=== PATIENT | male | born 1940 | race Caucasian/White ===

== ENCOUNTER 2017-07-03 10:14 | Inpatient (IN) | payer MEDICARE, MEDICAID, SELFPAY ==
[2017-07-03 10:15] VITALS: BP 132/78; PULSE 64; RESP 17; TEMP 36.7; O2SAT 98; BMI 25.4
[2017-07-03] MEDS: 0.9% Normal Saline 1,000 ML 100 ML IV ×2 (11:21→23:06)
[2017-07-03] MEDS: Acetaminophen 500 MG Tablet 1000 MG PO (11:21)
[2017-07-03 11:35] LABS: Absolute Lymphocyte Count 0.95 X10^3/ul (0.83-4.51); Absolute Neutrophil Count 5.7 X10^3/uL (2.0-7.7); Basophil# 0.03 X10^3/uL; Basophil% 0.4 % (0-1); Eosinophil# 0.34 X10^3/uL; Eosinophils% 4.5 % (0-5); Hematocrit 36.1 % (40-54); Hemoglobin 12.3 g/dl (13.0-16.5); Lymphocyte # 0.95 X10^3/ul (4.0); Lymphocyte % 12.5 % (19-41); Mean Corp Hgb Conc 34.1 g/gl (32-36); Mean Corpuscular Hgb 30.8 pg (27.0-32.0); Mean Corpuscular Volume 90.3 fL (80-94); Mean Platelet Vol. 13.3 fl (6.2-12.0); Monocyte# 0.57 X10^3/uL; Monocyte% 7.5 % (0-10); Neutrophil # 5.69 X10^3/uL (2.7-7.7); POSITIVE COUNT NO; POSITIVE DIFFERENTIAL NO; POSITIVE MORPHOLOGY NO; Platelet Count 130 K/mm3 (150-450); RBC Distribution Width CV 13.8 % (11.6-14.6); RBC Distribution Width SD 45.1 fl (35.1-43.9); White Blood Count 7.6 K/mm3 (4.4-11.0)
[2017-07-03 11:50] LABS: Anion Gap 10 (5-15); BUN 10 mg/dL (7-18); Calcium,Total 8.5 mg/dL (8.5-10.1); Chloride 108 mmol/L (98-107); Creatinine, Serum 0.84 mg/dL (0.70-1.30); EST Glomerular Filtration Rate 95 mL/min (>60); Est Glom Filt Rate - Afr Amer 114 mL/min (>60); Estimated Creatinine Clearance 64.06 ml/min; Glucose 92 mg/dL (74-106); Potassium 4.8 mmol/L (3.5-5.1); Sodium Level 138 mmol/L (136-145)
--- NOTE | 2017-07-03 12:25 | ED.VISSUMM ---
- ER Visit Summary Date of Service: 07/03/17 Chief Complaint: Rash and bilateral hand pain History of Present Illness: The patient is a 76 M who presents with cellulitis of bilateral arms. 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 He has had some chronic dermatitis on his hands for many years. Recently he developed increased pain and redness. He was prescribed a topical steroid as well as oral antibiotics which he completed a couple of weeks ago. Family reports that he did seem to be improving however in the past couple of days has significantly worsened again. He complains of increased pain and redness and warmth to the bilateral hands and arms. He was seen by a nurse practitioner at the [facility] who is concerned that he would need IV antibiotics and he was sent here to the emergency department. No fevers or vomiting. Physical Examination: Afebrile vitals are stable Moist mucous membranes Heart regular rate and rhythm Lungs are clear Abdomen soft He has erythema and warmth to the touch of the bilateral hands and arms to just above the elbow I do not appreciate lymphangitic streaking no petechiae or purpura he does have dryness and scaling of his hands with multiple areas of cracked skin and small open wounds. I do not appreciate any purulent drainage. Palpable pulses. Test Results: Laboratory studies are notable for hemoglobin 12.3 otherwise unremarkable. Emergency Department Course and Treatment: Patient was treated with IV Zosyn. He was discussed with the hospitalist will be admitted. Treatment Plan: [] Disposition: Admit Impression: Bilateral arm cellulitis Chronic dermatitis of hands This note was generated with [employer] dictation software. It may contain incorrect words, spelling, and punctuation that were not noted in review of the chart prior to signing ED Disposition - Plan for ED Patient: Chief Complaint: Cellulitis Referrals: Hasmukh Harrison MD [Primary Care Provider] -
--- NOTE | 2017-07-03 12:25 | PCM.HP.STD ---
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 Patient had been diagnosed with cellulitis about 3 weeks prior to his current admission was treated with Keflex with improvement however symptoms occurred a few days prior to his admission. Patient on further questioning denied any subjective fever no chills denied any recent trauma. On assessment of bilateral cellulitis involving both upper extremities was made in the ED admitted for inpatient evaluation and management. Patient was not very forthcoming with a history in view of his underlying dementia history was therefore taken from his son-in-law who was in the room. Past Medical History Past Medical History (Chronic Problems): Chronic Problems Essential hypertension (Chronic) Allergies No Known Allergies Allergy (Verified 07/03/17 10:15) Home Medications: Ambulatory Orders Medication Instructions Recorded Phenytoin Na [Dilantin] 100 mg PO BID 02/26/13 Nitroglycerin [Nitrostat] 0.4 mg SUBLINGUAL Q5M PRN 07/06/15 Aspirin [Aspirin, Baby] 81 mg PO DAILY@0800 09/18/15 Donepezil HCl 10 mg PO DAILY 09/18/15 Omeprazole [Prilosec] 20 mg PO BID 09/18/15 Atenolol [Tenormin (beta sal)] 25 mg PO DAILY 05/16/16 Clopidogrel Bisulfate [Plavix] 75 mg PO DAILY 05/16/16 Isosorbide Dinitrate 30 mg PO DAILY 05/16/16 Phenobarbital 48.6 mg PO BID 05/16/16 Surgical History: - - Right hand surgery Smoking Status: Former smoker - *Family History Maternal History Items: Unknown - Patient has dementia Review of Systems Unable to obtain accurate/complete ROS d/t: significant cognitive impairment VTE Information - Inpt Only VTE Present on Admission: No VTE Mechan Device Prophylaxis: Knee High LAMINE Hose VTE Pharm Prophylaxis ordered?: Yes Patient Problems: Active and Suspected Problems Cellulitis (Acute) Cellulitis of forearm (Acute) Objective: GENERAL: in no apparent distress. HEENT: Clear conjunctiva, NECK; supple, normal thyroid, CHEST: Clear to auscultation bilaterally, HEART: Regular S1 S2, no audible murmurs ABDOMEN: soft, non-tender, normoactive bowel sounds, RECTAL: deferred EXTREMITIES: Erythema and warmth involving both forearms with cracked hands with excoriations HEALTH AND WELLNESS COORDINATOR: Awake, no lateralizing signs. SKIN: As above - Physical Exam Vital Signs Temp Pulse Resp BP Pulse Ox 98.1 F 64 17 132/78 H 98 07/03/17 10:15 07/03/17 10:15 07/03/17 10:15 07/03/17 10:15 07/03/17 10:15 Oxygen Delivery Method Room Air Weight: 69.5 kg Body Mass Index (BMI) 25.4 Laboratory Tests Past 24 Hrs 07/03/17 07/03/17 11:25 11:25 WBC 7.6 RBC 4.00 L Hgb 12.3 L Hct 36.1 L MCV 90.3 MCH 30.8 MCHC 34.1 RDW 13.8 RDW Differential 45.1 H Plt Count 130 L MPV 13.3 H Immature Gran % (Auto) 0.100 Neut % (Auto) 75.0 H Lymph % (Auto) 12.5 L [place] % (Auto) 7.5 Eos % (Auto) 4.5 Baso % (Auto) 0.4 Absolute Neuts (auto) 5.7 Absolute Lymphs (auto) 0.95 Total Counted Not Reportable Sodium 138 Potassium 4.8 Chloride 108 H Carbon Dioxide 20.0 L Anion Gap 10 BUN 10 Creatinine 0.84 Estim Creat Clear Calc 64.06 Est GFR (MDRD) Af Amer 114 Est GFR (MDRD) Non-Af 95 BUN/Creatinine Ratio 12.0 Glucose 92 Calcium 8.5 Assessment/Plan Active and Suspected Problems Cellulitis (Acute) Cellulitis of forearm (Acute) Patient is a 76 year old gentleman with past medical history cigar for significant bilateral upper extremity skin dryness presented with erythema and warmth 1. Bilateral upper extremity cellulitis: Patient admitted to regular nursing floor. His cellulitis is nonpurulent patient was therefore placed on only cefazolin 2. Seizure disorder controlled patient is on phenytoin as well as phenobarbital did continue with both 3. GERD on PPI 4. Hypertension-blood pressure controlled, home medications continued with dose adjustment as needed 5. Dementia patient is on Aricept did continue 6. DVT prophylaxis SC Lovenox
--- NOTE | 2017-07-03 12:28 | ED.DCSUM_ITS ---
- ER Visit Summary Date of Service: 07/03/17 Chief Complaint: Rash and bilateral hand pain History of Present Illness: The patient is a 76 M who presents with cellulitis of bilateral arms. 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 He has had some chronic dermatitis on his hands for many years. Recently he developed increased pain and redness. He was prescribed a topical steroid as well as oral antibiotics which he completed a couple of weeks ago. Family reports that he did seem to be improving however in the past couple of days has significantly worsened again. He complains of increased pain and redness and warmth to the bilateral hands and arms. He was seen by a nurse practitioner at the [facility] who is concerned that he would need IV antibiotics and he was sent here to the emergency department. No fevers or vomiting. Physical Examination: Afebrile vitals are stable Moist mucous membranes Heart regular rate and rhythm Lungs are clear Abdomen soft He has erythema and warmth to the touch of the bilateral hands and arms to just above the elbow I do not appreciate lymphangitic streaking no petechiae or purpura he does have dryness and scaling of his hands with multiple areas of cracked skin and small open wounds. I do not appreciate any purulent drainage. Palpable pulses. Test Results: Laboratory studies are notable for hemoglobin 12.3 otherwise unremarkable. Emergency Department Course and Treatment: Patient was treated with IV Zosyn. He was discussed with the hospitalist will be admitted. Treatment Plan: [] Disposition: Admit Impression: Bilateral arm cellulitis Chronic dermatitis of hands This note was generated with [employer] dictation software. It may contain incorrect words, spelling, and punctuation that were not noted in review of the chart prior to signing ED Disposition - Plan for ED Patient: Chief Complaint: Cellulitis Referrals: Hasmukh Harrison MD [Primary Care Provider] -
[2017-07-03 12:45] VITALS: BP 102/69; PULSE 66; RESP 18; O2SAT 97
[2017-07-03 13:01] VITALS: BP 102/69; PULSE 66; RESP 17; O2SAT 97
[2017-07-03 13:53] VITALS: BMI 25.0
[2017-07-03 14:04] VITALS: BMI 25.0
[2017-07-03 14:33] VITALS: BP 136/60; PULSE 80; RESP 16; TEMP 36.7; O2SAT 94
[2017-07-03] MEDS: Cefazolin 1 GM/50 ML BAG IV ×2 (15:43→21:12)
[2017-07-03] MEDS: Phenytoin Na 100 MG Capsule PO (16:35)
[2017-07-03 17:56] LABS: Bedside Glucose 98 mg/dL (70-110)
[2017-07-03 20:52] VITALS: BP 146/68; PULSE 64; RESP 18; TEMP 36.6; O2SAT 100
[2017-07-03 20:59] VITALS: PULSE 64; RESP 18; O2SAT 100
[2017-07-03] MEDS: Pantoprazole Sodium 20 MG Tablet PO (21:12)
[2017-07-03] MEDS: Acetaminophen 325 MG Tablet 650 MG PO (21:21)
[2017-07-04 02:50] VITALS: BP 128/50; PULSE 64; RESP 18; TEMP 37.1; O2SAT 98
[2017-07-04 03:18] VITALS: PULSE 64
[2017-07-04] MEDS: Acetaminophen 325 MG Tablet 650 MG PO (03:24)
[2017-07-04] MEDS: Cefazolin 1 GM/50 ML BAG IV ×3 (06:03→21:24)
--- NOTE | 2017-07-04 07:25 | PCM.PN.HOSP ---
Patient Problems: Active and Suspected Problems Cellulitis (Acute) Cellulitis of forearm (Acute) Subjective: Patient seen admit to being able to move his fingers this a.m. the erythema is less intense compared to when he was first admitted Objective: GENERAL: in no apparent distress. HEENT: Clear conjunctiva, NECK; supple, normal thyroid, CHEST: Clear to auscultation bilaterally, HEART: Regular S1 S2, no audible murmurs ABDOMEN: soft, non-tender, normoactive bowel sounds, RECTAL: deferred EXTREMITIES: Erythema and warmth involving both forearms with cracked hands with excoriations CONTROLS TECHNICIAN: Awake, no lateralizing signs. SKIN: As above Vitals/I&O's: Vital Signs Temp Pulse Resp BP Pulse Ox 98.7 F 64 18 128/50 H 98 07/04/17 02:50 07/04/17 03:18 07/04/17 02:50 07/04/17 02:50 07/04/17 02:50 Oxygen Delivery Method Room Air Weight: 68.039 kg Body Mass Index (BMI) 25.0 Intake and Output for Last 24 Hours 07/02/17 07/03/17 07/04/17 23:59 23:59 23:59 Intake Total 1773 / 1773 Balance 1773 / 1773 Laboratory Results 07/03/17 16:34: POC Glucose 98 Current Medications Acetaminophen (Tylenol) 650 mg PO Q6H PRN PRN PRN Reason: Mild Pain (scale 0-3)/T>100.7 Last Admin: 07/04/17 03:24 Dose: 650 mg Aspirin (Aspirin, Baby) 81 mg PO DAILY@0800 [facility] Atenolol (Tenormin (Beta Shante)) 25 mg PO DAILY [facility] Bisacodyl (Dulcolax) 10 mg PO DAILY PRN PRN PRN Reason: Constipation Clopidogrel Bisulfate (Plavix) 75 mg PO DAILY [facility] Dextrose (D50w Syringe) 0 gm IV X1 PRN; Protocol PRN Reason: Hypoglycemia Docusate Sodium (Colace) 200 mg PO BID PRN PRN PRN Reason: Constipation Donepezil HCl (Aricept) 10 mg PO DAILY [facility] Enoxaparin Sodium (Lovenox) 40 mg SC DAILY@1000 [facility] Glucagon () 1 mg IM .X1 PRN PRN Reason: Hypoglycemia Sodium Chloride () 1,000 mls @ 100 mls/hr IV .Q10H [facility] Last Admin: 07/03/17 23:06 Dose: 100 mls/hr Cefazolin Sodium () 1 gm in 50 mls @ 150 mls/hr IV Q8 [facility] Last Admin: 07/04/17 06:03 Dose: 150 mls/hr Isosorbide Dinitrate (Isordil) 30 mg PO DAILY [facility] Magnesium Hydroxide (Milk Of Magnesia) 30 ml PO DAILY PRN PRN PRN Reason: Constipation Nitroglycerin (Nitrostat) 0.4 mg SUBLINGUAL Q5M PRN PRN Reason: Chest Pain Ondansetron HCl (Zofran) 4 mg IV Q8H PRN PRN PRN Reason: Nausea Pantoprazole Sodium (Protonix) 20 mg PO BID [facility] Last Admin: 07/03/17 21:12 Dose: 20 mg Phenobarbital (Phenobarbital) 48.6 mg PO BID [facility] Last Admin: 07/03/17 21:19 Dose: 48.6 mg [facility] Last Admin: 07/03/17 16:35 Dose: 100 mg Sodium Chloride () 5 - 30 ml IV UD PRN PRN Reason: SALINE FLUSH Zolpidem Tartrate (Ambien (Generic)) 5 mg PO QHS PRN PRN PRN Reason: INSOMNIA Medical Necessity - Tobacco Use Smoking Status: Former smoker Assessment/Plan Active and Suspected Problems Cellulitis (Acute) Cellulitis of forearm (Acute) Patient is a 76 year old gentleman with past medical history cigar for significant bilateral upper extremity skin dryness presented with erythema and warmth 1. Bilateral upper extremity cellulitis: Patient admitted to regular nursing floor. His cellulitis is nonpurulent patient was therefore placed on only cefazolin 2. Seizure disorder controlled patient is on phenytoin as well as phenobarbital did continue with both 3. GERD on PPI 4. Hypertension-blood pressure controlled, home medications continued with dose adjustment as needed 5. Dementia patient is on Aricept did continue 6. DVT prophylaxis SC Lovenox Code Visit Inpatient E&M: 37963 [facility] Hosp L2
[2017-07-04 07:57] LABS: Anion Gap 7 (5-15); BUN 9 mg/dL (7-18); BUN/Creat Ratio 10.7 RATIO (10-20); Calcium,Total 8.4 mg/dL (8.5-10.1); Chloride 109 mmol/L (98-107); Creatinine, Serum 0.84 mg/dL (0.70-1.30); EST Glomerular Filtration Rate 94 mL/min (>60); Est Glom Filt Rate - Afr Amer 114 mL/min (>60); Estimated Creatinine Clearance 64.06 ml/min; Glucose 101 mg/dL (74-106); Potassium 4.4 mmol/L (3.5-5.1); Sodium Level 142 mmol/L (136-145)
--- NOTE | 2017-07-04 08:32 | CASEMGMT ---
Social Work Note PEDRO met with pt to discuss discharge planning. PEDRO introduced self and role at [facility]. Pt confirms that he is from [facility] and that his plan is to return there at discharge. PEDRO placed a call to [facility] and spoke with Marylou who states that pt is from the assisted living side at [facility]. Marylou transferred this worker to [place] in assisted living. This PEDRO informed Amanda with [facility] that pt's plan is to return to the assisted living side at discharge. Per Amanda as long as pt is still able to walk and be independent he will be able to return to the assisted living side. PEDRO faxed over clinicals to [facility]. Police Radio Dispatcher will continue to follow to assist with discharge planning. Plan: Return to [facility]isted [facility] side at discharge Natalee Lau DIRECTOR OF OPERATIONS, COMMUNITY RELATIONS DIRECTOR
[2017-07-04 08:49] VITALS: BP 121/63; PULSE 56; RESP 16; TEMP 36.4; O2SAT 97
[2017-07-04] MEDS: 0.9% Normal Saline 1,000 ML 100 ML IV ×2 (08:53→19:24)
[2017-07-04] MEDS: Phenytoin Na 100 MG Capsule PO ×2 (08:54→17:28)
[2017-07-04] MEDS: Aspirin 81 MG TAB.CHEW PO (08:54)
[2017-07-04 09:35] VITALS: PULSE 60
[2017-07-04] MEDS: Pantoprazole Sodium 20 MG Tablet PO ×2 (10:50→21:24)
[2017-07-04] MEDS: Isosorbide DN 30 MG Tablet PO (10:50)
[2017-07-04] MEDS: Donepezil HCl 10 MG Tablet PO (10:50)
[2017-07-04] MEDS: Clopidogrel Bisulfate 75 MG Tablet PO (10:50)
[2017-07-04] MEDS: Enoxaparin 40 MG/0.4 ML Syringe SC (10:50)
[2017-07-04] MEDS: Atenolol 25 MG Tablet PO (10:50)
[2017-07-04 15:01] VITALS: BP 101/29; PULSE 57; RESP 18; TEMP 35.6; O2SAT 96
--- NOTE | 2017-07-04 15:59 | CHAPLAIN ---
Type of Pastoral Visit _x__ Initial Visit ___ Follow-up Visit ___ On-call Visit ___ General Patient Visit ___ Spiritual Assessment ___ Family Conference ___ Bereavement ___ Rapid Response ___ Code Blue ___ Other (describe below) Pastoral Care Referral From _x__ Patient ___ Family ___ Nurse ___ Physician ___ Tin Dipper ___ Blow Molder ___ Other (describe below) Sacrament/Intervention _x__ Active listening ___ Anointing ___ Gnosticist ___ Bereavement ___ Communion _x__ Jeanne exploration ___ _x__ Life review _x__ Prayer ___ Reconciliation ___ Sacrament of Sick _x__ Supportive presence ___ Wedding ___ Other (describe below) Pastoral Comments
[2017-07-04 20:41] VITALS: BP 114/82; PULSE 63; RESP 18; TEMP 36.4; O2SAT 97
[2017-07-05 03:08] VITALS: BP 110/63; PULSE 64; RESP 18; TEMP 36.4; O2SAT 97
[2017-07-05] MEDS: Cefazolin 1 GM/50 ML BAG IV (06:04)
[2017-07-05 07:33] LABS: Anion Gap 7 (5-15); BUN 8 mg/dL (7-18); BUN/Creat Ratio 11.8 RATIO (10-20); Calcium,Total 8.5 mg/dL (8.5-10.1); Chloride 109 mmol/L (98-107); Creatinine, Serum 0.68 mg/dL (0.70-1.30); EST Glomerular Filtration Rate 120 mL/min (>60); Est Glom Filt Rate - Afr Amer 145 mL/min (>60); Estimated Creatinine Clearance 53.81 ml/min; Glucose 97 mg/dL (74-106); Potassium 3.8 mmol/L (3.5-5.1); Sodium Level 142 mmol/L (136-145)
[2017-07-05 08:10] VITALS: BP 129/72; PULSE 61; RESP 16; TEMP 36.7; O2SAT 95
[2017-07-05] MEDS: Aspirin 81 MG TAB.CHEW PO (08:21)
[2017-07-05] MEDS: Phenytoin Na 100 MG Capsule PO (08:21)
[2017-07-05] MEDS: 0.9% Normal Saline 1,000 ML 100 ML IV (08:21)
[2017-07-05 08:56] LABS: Bedside Glucose 95 mg/dL (70-110)
--- NOTE | 2017-07-05 09:02 | PCM.DC ---
- Discharge Diagnoses Current Active Problems: Current Active and Chronic Problems Cellulitis (Acute) Cellulitis of forearm (Acute) Essential hypertension (Chronic) You will use the following diet at home:: No restrictions Allergies/Adverse Reactions: Allergies No Known Allergies Allergy (Verified 07/03/17 10:15) Medications to take at Discharge Phenytoin Na [Dilantin] 100 mg PO DAILY 02/26/13 Nitroglycerin [Nitrostat] 0.4 mg SUBLINGUAL Q5M PRN 07/06/15 Omeprazole [Prilosec] 20 mg PO BID 09/18/15 Atenolol [Tenormin (beta sal)] 25 mg PO DAILY 05/16/16 Isosorbide Dinitrate 30 mg PO DAILY 05/16/16 Phenobarbital 48.6 mg PO BID 05/16/16 Cholecalciferol (Vitamin D3) [Vitamin D3] 50,000 unit PO 07/03/17 Cephalexin [Keflex] 500 mg PO Q12 #10 cap 07/05/17 The following prescriptions were given: Cephalexin [Keflex] 500 mg PO Q12 #10 cap Primary Care Physician: Hasmukh Harrison MD [Primary Care Provider] - Please follow up with your Primary Care Physician in: in 5-7 days Proposed Discharge Date: 07/05/17
--- NOTE | 2017-07-05 09:03 | PCM.DC.SUM ---
Discharge Date and Diagnosis - Problem List Patient Problems: Active and Suspected Problems Cellulitis (Acute) Cellulitis of forearm (Acute) Date of Admission: 07/03/17 Date of Discharge: 07/05/17 - Primary Discharge Diagnosis Active and Suspected Problems Cellulitis (Acute) Cellulitis of forearm (Acute) - Secondary Discharge Diagnosis Chronic Problems Essential hypertension (Chronic) Hospital Course and Treatment Operations: None Summary of Care Provided: Patient is a 76 year old gentleman with past medical history cigar for significant bilateral upper extremity skin dryness presented with erythema and warmth 1. Bilateral upper extremity cellulitis: Patient admitted to regular nursing floor. His cellulitis is nonpurulent patient was therefore placed on only cefazolin. Patient was discharged home on Keflex for 5 additional days instructed to follow-up with PCP for subsequent care 2. Seizure disorder controlled patient is on phenytoin as well as phenobarbital did continue with both 3. GERD on PPI 4. Hypertension-blood pressure controlled, home medications continued with dose adjustment as needed 5. Dementia patient is on Aricept did continue 6. DVT prophylaxis SC Lovenox Discharge Diet: No Restrictions Home Medications: Medications to take at Discharge Phenytoin Na [Dilantin] 100 mg PO DAILY 02/26/13 Nitroglycerin [Nitrostat] 0.4 mg SUBLINGUAL Q5M PRN 07/06/15 Omeprazole [Prilosec] 20 mg PO BID 09/18/15 Atenolol [Tenormin (beta sal)] 25 mg PO DAILY 05/16/16 Isosorbide Dinitrate 30 mg PO DAILY 05/16/16 Phenobarbital 48.6 mg PO BID 05/16/16 Cholecalciferol (Vitamin D3) [Vitamin D3] 50,000 unit PO 07/03/17 Cephalexin [Keflex] 500 mg PO Q12 #10 cap 07/05/17 Following Prescrptions Were Given to Patient: Cephalexin [Keflex] 500 mg PO Q12 #10 cap Primary Care Physician: Hasmukh Harrison MD [Primary Care Provider] - Please follow up with your Primary Care Physician in: in 5-7 days Disposition: Home Minutes spent on discharge:: 35 Patient Condition:: Stable Medical Necessity - Tobacco Use Smoking Status: Former smoker Meaningful Use Info Meaningful Use Diagnoses (Choose all that apply): None applicable Code Visit Inpatient E&M: 85907 Disch Hosp
--- NOTE | 2017-07-05 09:31 | NURSING ---
this clinical technologist had made a follow up appointment , then family had stated that he would not have transportation so this clinical technologist canceled that appointment and family will make an appointment them selves to make sure pt has transportation
--- NOTE | 2017-07-05 09:45 | CASEMGMT ---
Social Work Note Pt is discharging today and will be returning to [facility]. SW faxed discharge instructions, discharge summary and medication list to [facility]. Pt's son will be transporting pt to [facility] today. PEDRO placed call to [facility] and updated them that pt is discharging back today. No other issues or concerns at this time. Plan: Return to [facility] with son transporting today Natalee Lau CADDIE, SOFTWARE TEAM LEADER
== END 2017-07-05 09:50 | disposition home or self-care (01) | DRG 603 ==
LOC: ED 12:45 → MS3 12:47
PROVIDERS: Admitting Provider Internal Medicine; Emergency Provider Emergency Medicine; Family Provider Family Medicine; PCP Family Medicine; Visit Provider Internal Medicine
DX: L03.114 Cellulitis of left upper limb (principal); L03.113 Cellulitis of right upper limb; L30.9 Dermatitis, unspecified; I25.10 Atherosclerotic heart disease of native coronary artery without angina pectoris; I10 Essential (primary) hypertension; E78.00 Pure hypercholesterolemia, unspecified; K21.9 Gastro-esophageal reflux disease without esophagitis; G40.909 Epilepsy, unspecified, not intractable, without status epilepticus; F03.90 Unspecified dementia, unspecified severity, without behavioral disturbance, psychotic disturbance, mood disturbance, and anxiety; Z79.899 Other long term (current) drug therapy; Z87.891 Personal history of nicotine dependence
CPT/HCPCS: 36415; 80048; 82962; 85025; 99285; J7030; J0295

== ENCOUNTER 2018-05-18 20:36 | Inpatient (IN) | payer MEDICARE, SELFPAY ==
[2018-05-18 20:37] VITALS: BP 120/85; PULSE 59; RESP 16; TEMP 36.3; O2SAT 99; BMI 26.6
--- NOTE | 2018-05-18 20:56 | CT_ITS ---
STUDY: CT BRAIN WITHOUT CONTRAST REASON FOR EXAM: Male, 77 years old. Decreased mental status. Falls. RADIATION DOSAGE (If Supplied By Facility): CTDIvol = ( 44.99 ) mGy, DLP = ( 880.47 ) mGycm TECHNIQUE: Transaxial CT imaging of the brain was performed without administration of intravenous contrast material. Individualized dose optimization techniques were used for this CT. COMPARISON: None. FINDINGS: Normal soft tissue structures. Normal calvarium. There is mild cerebral atrophy with widening of the extra-axial spaces and ventricular dilatation. Normal white matter tracts of the cerebral hemispheres. Normal basal ganglia and thalami. Normal brainstem. Normal cerebellum. There is no intracranial hemorrhage. There are no findings of an acute ischemic infarction. Normal visualized paranasal sinuses. CT/Brain/Head without Contrast IMPRESSION: Mild atrophy consistent with age, otherwise negative. Electronically Signed: Vladimir Arizmendi MD at 21:54 EST , Service support ,
--- NOTE | 2018-05-18 20:57 | EKG12_ITS ---
Test Reason : ALTERED LOC Blood Pressure : / mmHG Vent. Rate : 062 BPM Atrial Rate : 062 BPM P-R Int : 220 ms QRS Dur : 148 ms QT Int : 484 ms P-R-T Axes : 041 -30 111 degrees QTc Int : 491 ms Sinus rhythm with 1st degree A-V block Left axis deviation Left bundle branch block Abnormal ECG Confirmed by DAVID ALCALA, HARRIS ([id number]), digital editor ANA RIZZO ([id number] on 05/20/2018 4:36:41 PM Referred By: ABDIRAHMAN Confirmed By:HARRIS HERNANDEZ MD
--- NOTE | 2018-05-18 21:21 | ED.VISSUMM ---
- ER Visit Summary Date of Service: 05/18/18 Chief Complaint: Altered mental status History of Present Illness: The patient is a 77 M who presents with altered mental status that was noticed today at the [facility]. Staff reports the patient has been falling frequently. Reports the patient has fallen 3 times in the last 24 hours. Staff denies any head injury. Staff also reports the patient had his Dilantin dose increased recently. Patient is nonverbal and is a poor historian. Physical Examination: Vital signs are stable. Patient is afebrile. Patient is in no acute distress. Oral mucosa is dry. Neck is supple. Heart was regular rate and rhythm. Lungs are diminished bilaterally. There is poor respiratory effort. Abdomen is soft. There is no apparent tenderness. There are no masses palpated. Patient is alert but nonverbal. Patient is moving all extremities. I do not appreciate any focal neuro deficits. Test Results: EKG showed normal sinus rhythm with a rate of 62. There is a left bundle branch block noted. This was unchanged compared to previous EKG dated 09/19/2015. CT scan of the brain was obtained. There is no acute intracranial abnormality noted. CBC, comprehensive metabolic profile, PT with INR, and PTT were obtained and were essentially within normal limits. Urinalysis was obtained. There is no evidence of urinary tract infection. Dilantin level was obtained and was elevated at 41.6. Emergency Department Course and Treatment: Patient was given IV fluids here in the emergency department. Case was discussed with Dr. Smith. He will admit the patient to the PCU to his service. Disposition: Admit to hospital Impression: Dilantin toxicity This note was generated with [employer] dictation software. It may contain incorrect words, spelling, and punctuation that were not noted in review of the chart prior to signing ED Disposition - Plan for ED Patient: Disposition: Acute Care Hospital [facility] Diagnosis: Dilantin toxicity Referrals: Hasmukh Harrison MD [Primary Care Provider] -
--- NOTE | 2018-05-18 21:25 | ED.DCSUM_ITS ---
- ER Visit Summary Date of Service: 05/18/18 Chief Complaint: Altered mental status History of Present Illness: The patient is a 77 M who presents with altered mental status that was noticed today at the [facility]. Staff reports the patient has been falling frequently. Reports the patient has fallen 3 times in the last 24 hours. Staff denies any head injury. Staff also reports the patient had his Dilantin dose increased recently. Patient is nonverbal and is a poor historian. Physical Examination: Vital signs are stable. Patient is afebrile. Patient is in no acute distress. Oral mucosa is dry. Neck is supple. Heart was regular rate and rhythm. Lungs are diminished bilaterally. There is poor respiratory effort. Abdomen is soft. There is no apparent tenderness. There are no masses palpated. Patient is alert but nonverbal. Patient is moving all extremities. I do not appreciate any focal neuro deficits. Test Results: EKG showed normal sinus rhythm with a rate of 62. There is a left bundle branch block noted. This was unchanged compared to previous EKG dated 09/19/2015. CT scan of the brain was obtained. There is no acute intracranial abnormality noted. CBC, comprehensive metabolic profile, PT with INR, and PTT were obtained and were essentially within normal limits. Urinalysis was obtained. There is no evidence of urinary tract infection. Dilantin level was obtained and was elevated at 41.6. Emergency Department Course and Treatment: Patient was given IV fluids here in the emergency department. Case was discussed with Dr. Smith. He will admit the patient to the PCU to his service. Disposition: Admit to hospital Impression: Dilantin toxicity This note was generated with [employer] dictation software. It may contain incorrect words, spelling, and punctuation that were not noted in review of the chart prior to signing ED Disposition - Plan for ED Patient: Disposition: Acute Care Hospital [facility] Diagnosis: Dilantin toxicity Referrals: Hasmukh Harrison MD [Primary Care Provider] -
[2018-05-18 21:31] LABS: Bacteria 0 SEEN /hpf (None Seen); Squamous Epithelial Cells - UA 0 SEEN /hpf (0-5)
[2018-05-18 21:33] LABS: Absolute Lymphocyte Count 1.58 X10^3/ul (0.83-4.51); Absolute Neutrophil Count 4.2 X10^3/uL (2.0-7.7); Basophil# 0.02 X10^3/uL; Basophil% 0.3 % (0-1); Eosinophil# 0.44 X10^3/uL; Eosinophils% 6.6 % (0-5); Hematocrit 41.7 % (40-54); Hemoglobin 13.8 g/dl (13.0-16.5); Lymphocyte # 1.58 X10^3/ul (4.0); Lymphocyte % 23.7 % (19-41); Mean Corp Hgb Conc 33.1 g/gl (32-36); Mean Corpuscular Hgb 30.3 pg (27.0-32.0); Mean Corpuscular Volume 91.4 fL (80-94); Mean Platelet Vol. 11.7 fl (6.2-12.0); Monocyte# 0.38 X10^3/uL; Monocyte% 5.7 % (0-10); Neutrophil # 4.24 X10^3/uL (2.7-7.7); Neutrophil % 63.4 % (47-70); Platelet Count 176 K/mm3 (150-450); RBC Distribution Width CV 13.8 % (11.6-14.6); RBC Distribution Width SD 45.7 fl (35.1-43.9); Red Blood Count 4.56 M/mm3 (4.6-6.2); White Blood Count 6.7 K/mm3 (4.4-11.0)
[2018-05-18 21:36] LABS: Color, Urine Yellow (Yellow); Glucose, Dipstick Normal (Normal); Ketone-Dipstick 5 mg/dl (Negative); Leukocyte Esterase-Dipstick 25 /ul (Negative); Nitrite-Dipstick Negative (Negative); Occult Blood-Urine 10 /ul (Negative); Protein-Dipstick 15 mg/dl (Negative); Urine Bilirubin Dipstick Negative (Negative); Urine Clarity Clear (Clear); Urine Urobilinogen Normal (Normal); Urine pH 6.5 (5.0 - 8.0)
[2018-05-18 21:38] LABS: International Normalized Ratio 1.1; Partial Thromboplast Time 34.2 Seconds (24.1-36.2); Prothrombin Time (Protime)PT. 14.3 SECONDS (11.7-14.9)
[2018-05-18 21:40] LABS: POSITIVE COUNT NO; POSITIVE DIFFERENTIAL NO; POSITIVE MORPHOLOGY NO
[2018-05-18 21:41] LABS: Mucous, Urine 2+ /hpf (<or=2+); Red Blood Cells-Urine 0-5 SEEN /hpf (0-5); White Blood Cells 0-5 SEEN /hpf (0-5)
[2018-05-18 21:47] LABS: ALB/GLOB Ratio 1.2 RATIO (0.9-2.4); AST(SGOT) 35 U/L (15-37); Alanine Aminotransfer ALT/SGPT 30 U/L (16-61); Albumin, Serum 4.4 g/dL (3.2-5.0); Alkaline Phosphatase 127 U/L (45-117); Anion Gap 6 (5-15); BUN 16 mg/dL (7-18); BUN/Creat Ratio 20.1 RATIO (10-20); Chloride 106 mmol/L (98-107); EST Glomerular Filtration Rate 100 mL/min (>60); Est Glom Filt Rate - Afr Amer 121 mL/min (>60); Estimated Creatinine Clearance 73.63 ml/min; Globulin 3.7 g/dL (2.2-4.2); Glucose 105 mg/dL (74-106); Potassium 4.1 mmol/L (3.5-5.1); Protein, Total 8.1 g/dL (6.4-8.2); Sodium Level 141 mmol/L (136-145)
[2018-05-18 22:28] VITALS: BP 111/53; PULSE 55; RESP 12; O2SAT 97
[2018-05-18 22:43] LABS: Phenytoin (Dilantin) Level 41.3 mL (10.0-20.0)
--- NOTE | 2018-05-18 22:44 | ED.RN ---
critical phenytonin called from lab of 41.3 RN and updated.
[2018-05-18] MEDS: 0.9% Normal Saline 1,000 ML 1000 ML IV (22:48)
--- NOTE | 2018-05-18 22:50 | PCM.HP.STD ---
Problem List (1) Essential hypertension Status: Chronic (2) Dilantin toxicity Status: Acute (3) Seizures Status: Acute History of Present Illness Date of Admission: 05/18/18 Chief Complaint: altered mental status The patient is a 77 year old M with a significant history of Dementia; COPD; CAD; GERD; hypertension; hyperlipidemia; and epilepsy who was sent from correction because of altered mental status. At baseline patient is reportedly alert and oriented x1 but verbal. However patient has been nonverbal and has fallen 3 times in 1 day for which reason he was brought to the emergency department for evaluation. Also patient was recently treated for pneumonia and his Dilantin dose was recently increased. At the emergency department patient was found to have elevated Dilantin levels. EKG showed left bundle branch block which is unchanged from previous. Patient was found to have bradycardia with heart rate around 55-60. Because patient had dry mucous membranes he received IV fluids at emergency department. Patient is obtunded and was responding to commands history was taken from emergency department doctor. Past Medical History Past Medical History (Chronic Problems): Chronic Problems Essential hypertension (Chronic) Allergies No Known Allergies Allergy (Verified 05/18/18 20:40) Home Medications: Ambulatory Orders Medication Instructions Recorded Phenytoin Na [Dilantin] 300 mg PO BID 02/26/13 Nitroglycerin [Nitrostat] 0.4 mg SUBLINGUAL Q5M PRN 07/06/15 Omeprazole [Prilosec] 20 mg PO DAILY 09/18/15 Atenolol [Tenormin (beta sal)] 25 mg PO DAILY 05/16/16 Isosorbide Dinitrate 30 mg PO DAILY 05/16/16 Phenobarbital 48.6 mg PO BID 05/16/16 Acetaminophen [Tylenol] 650 mg PO Q4H PRN PRN 05/18/18 Aspirin [Aspirin, Baby] 81 mg PO DAILY@0800 05/18/18 Atorvastatin Calcium [Lipitor] 20 mg PO QHS 05/18/18 Bisacodyl [Biscolax] 10 mg RC X1 PRN 05/18/18 Donepezil HCl [Aricept] 20 mg PO QHS 05/18/18 Guaifenesin [Robitussin] 10 ml PO Q4H PRN PRN 05/18/18 L. Rhamnosus GG/Inulin [Culturelle 1 each PO QHS 05/18/18 Capsule] Magnesium Hydroxide [Milk Of 30 ml PO X1 05/18/18 Magnesia] Na Phos,M-B/Na Phos,Di-Ba [Fleet 120 ml RECTAL PRN PRN 05/18/18 Enema] Promethazine HCl 25 mg PO Q6H PRN 05/18/18 Surgical History: - - Right hand surgery Lives: Skilled Nursing Smoking Status: Unknown if ever smoked - *Family History Maternal History Items: Unknown - Patient has dementia Paternal History Items: - - Unable to obtain since patient has dementia. Review of Systems Unable to obtain accurate/complete ROS d/t: Patient is obtunded. VTE Information - Inpt Only VTE Present on Admission: No VTE Mechan Device Prophylaxis: None VTE Pharm Prophylaxis ordered?: Yes Patient Problems: Active and Suspected Problems Dilantin toxicity (Acute) - Physical Exam General: - - Obtunded. Responds to sternal rub by moving in bed. HEENT: Atraumatic, Normocephalic Oral: Dry Mucosa Neck: Supple, Trachea Midline Lungs: Clear to auscultation, Normal air movement Cardiovascular: No murmurs, Bradycardic Abdomen: Bowel Sounds Present, Soft, Non Tender Extremities: No edema, Capillary Refill Less than 3 Seconds Skin: No rashes, No breakdown, - Musculoskeletal: No Tenderness to Palpation of Joints or Extremities Neurological: - - Obtunded, respond to sternal rubs. Psych/Mental Status: - - Obtunded Vital Signs Temp Pulse Resp BP Pulse Ox 97.4 F L 55 L 12 111/53 L 97 05/18/18 20:37 05/18/18 22:28 05/18/18 22:28 05/18/18 22:28 05/18/18 22:28 Oxygen Delivery Method Room Air Weight: 79.3 kg Body Mass Index (BMI) 26.6 Laboratory Tests Past 24 Hrs 05/18/18 05/18/18 05/18/18 21:15 21:15 21:15 WBC 6.7 RBC 4.56 L Hgb 13.8 Hct 41.7 MCV 91.4 MCH 30.3 MCHC 33.1 RDW 13.8 RDW Differential 45.7 H Plt Count 176 MPV 11.7 Immature Gran % (Auto) 0.300 Neut % (Auto) 63.4 Lymph % (Auto) 23.7 Becker % (Auto) 5.7 Eos % (Auto) 6.6 H Baso % (Auto) 0.3 Absolute Neuts (auto) 4.2 Absolute Lymphs (auto) 1.58 Total Counted Not Reportable PT 14.3 INR 1.1 APTT 34.2 Sodium 141 Potassium 4.1 Chloride 106 Carbon Dioxide 29.0 Anion Gap 6 BUN 16 Creatinine 0.80 Estim Creat Clear Calc 73.63 Est GFR (MDRD) Af Amer 121 Est GFR (MDRD) Non-Af 100 BUN/Creatinine Ratio 20.1 H Glucose 105 Calcium 9.0 Total Bilirubin 0.30 AST 35 ALT 30 Alkaline Phosphatase 127 H Total Protein 8.1 Albumin 4.4 Globulin 3.7 Albumin/Globulin Ratio 1.2 Urine Color Urine Clarity Urine pH Ur Specific [place] Urine Protein Urine Glucose (UA) Urine Ketones Urine Occult Blood Urine Nitrite Urine Bilirubin Urine Urobilinogen Ur Leukocyte Esterase Urine RBC Urine WBC Ur Squamous Epith Cells Urine Bacteria Urine Mucus Phenytoin 05/18/18 05/18/18 21:15 21:25 WBC RBC Hgb Hct MCV MCH MCHC RDW RDW Differential Plt Count MPV Immature Gran % (Auto) Neut % (Auto) Lymph % (Auto) Becker % (Auto) Eos % (Auto) Baso % (Auto) Absolute Neuts (auto) Absolute Lymphs (auto) Total Counted PT INR APTT Sodium Potassium Chloride Carbon Dioxide Anion Gap BUN Creatinine Estim Creat Clear Calc Est GFR (MDRD) Af Amer Est GFR (MDRD) Non-Af BUN/Creatinine Ratio Glucose Calcium Total Bilirubin AST ALT Alkaline Phosphatase Total Protein Albumin Globulin Albumin/Globulin Ratio Urine Color Yellow Urine Clarity Clear Urine pH 6.5 Ur Specific [place] 1.020 Urine Protein 15 H Urine Glucose (UA) Normal Urine Ketones 5 H Urine Occult Blood 10 H Urine Nitrite Negative Urine Bilirubin Negative Urine Urobilinogen Normal Ur Leukocyte Esterase 25 H Urine RBC 0-5 SEEN Urine WBC 0-5 SEEN Ur Squamous Epith Cells 0 SEEN Urine Bacteria 0 SEEN Urine Mucus 2+ Phenytoin 41.3 H* Assessment/Plan All Active Problems Cellulitis (Acute) Cellulitis of forearm (Acute) Dilantin toxicity (Acute) Seizures (Acute) The patient is a 77 year old correction patient with a significant history of essential hypertension and epilepsy who was recently treated for pneumonia and had his Dilantin dose increased now presenting with altered mental status and multiple falls and found to have elevated Dilantin level consistent with acute toxic encephalopathy likely secondary to elevated Dilantin level. Acute toxic encephalopathy Likely due to Dilantin toxicity. Dilantin level on admission 41.3( normal therapeutic level 10-20). Review of old records shows that his Dilantin level on 12/22/2015 was low at 6.4. Hold Dilantin at this time. Further, will hold all p.o. medication until speech eval. We will start patient on IV Keppra. Seizure precautions ordered. Patient has been admitted to PCU on telemetry monitoring. His urinalysis was unremarkable. His brain CT showed mild atrophy consistent with age, otherwise negative. Independently reviewed. Agree with radiologist interpretation. If patient does not improve while Dilantin has been held consider a chest x-ray; blood culture or other. Dehydration Review of ED labs shows normal BUN and creatinine. However patient looks clinically dehydrated with dry mucous membrane. Received IV normal saline bolus in the emergency department. We will continue patient on maintenance IV normal saline. Trend BMP. Hypertension On admission his blood pressure was within goal. Home atenolol held. Trend blood pressures. As needed hydralazine ordered. Dementia Aricept held since patient is obtunded. DVT prophylaxis Subcutaneous heparin. Code Visit Inpatient E&M: 94627 Init Hosp L3
[2018-05-18 23:56] VITALS: PULSE 53
[2018-05-19] VITALS (12 sets, daily range): BP systolic 108–136; BP diastolic 53–90; PULSE 54–67; RESP 14–18; TEMP 36.4–36.6; O2SAT 93–98; BMI 27.2; BMI 27.3
[2018-05-19] MEDS: 0.9% Normal Saline 1,000 ML 100 ML IV (01:22)
[2018-05-19 06:09] LABS: Hematocrit 38.6 % (40-54); Hemoglobin 13.1 g/dl (13.0-16.5); Mean Corp Hgb Conc 33.9 g/gl (32-36); Mean Corpuscular Hgb 31.3 pg (27.0-32.0); Mean Corpuscular Volume 92.1 fL (80-94); Mean Platelet Vol. 11.7 fl (6.2-12.0); Platelet Count 159 K/mm3 (150-450); RBC Distribution Width CV 13.4 % (11.6-14.6); Red Blood Count 4.19 M/mm3 (4.6-6.2); White Blood Count 4.4 K/mm3 (4.4-11.0)
[2018-05-19 06:12] LABS: Anion Gap 8 (5-15); BUN 14 mg/dL (7-18); Chloride 109 mmol/L (98-107); EST Glomerular Filtration Rate 116 mL/min (>60); Est Glom Filt Rate - Afr Amer 140 mL/min (>60); Estimated Creatinine Clearance 52.96 ml/min; Glucose 89 mg/dL (74-106); Potassium 3.6 mmol/L (3.5-5.1); Sodium Level 144 mmol/L (136-145)
[2018-05-19 06:14] LABS: Scan Indicated on CBC? Y/N NO
[2018-05-19] MEDS: Heparin Injection (Vial) 5,000 UNIT/ML VIAL 5000 UNIT SC ×2 (10:10→21:22)
[2018-05-19] MEDS: Bisacodyl 10 MG Suppository RECTAL (12:41)
--- NOTE | 2018-05-19 13:10 | PCM.PN.HOSP ---
Patient Problems: Active and Suspected Problems Dilantin toxicity (Acute) Subjective: Patient seen and examined. She was admitted from his group home on account of altered mental status and was found to have elevated phenobarbital levels as well as elevated Dilantin levels. He is been admitted for acute metabolic encephalopathy likely medication induced from phenobarbital and Dilantin. Patient's baseline is alert and oriented x1 but verbal according to admitting notes. Patient seen and examined. He is alert but not communicating. Patient denies any questions asked. Unable to do review of systems on account of patient not answering questions. Vitals/I&O's: Vital Signs Temp Pulse Resp BP Pulse Ox 97.5 F L 54 L 15 117/59 L 98 05/19/18 09:29 05/19/18 11:02 05/19/18 09:29 05/19/18 09:29 05/19/18 09:29 Oxygen Delivery Method Room Air Weight: 163 lb 12.855 oz Body Mass Index (BMI) 27.2 Intake and Output for Last 24 Hours 05/17/18 05/18/18 05/19/18 23:59 23:59 23:59 Intake Total 1186 / 1186 Output Total 500 / 500 Balance 686 / 686 General: Alert, Confused, Disoriented HEENT: Atraumatic, PERRLA, EOMI, Normocephalic Oral: Moist Mucosa Neck: Supple, No JVD, Negative Carotid Bruits Lungs: Clear to auscultation, Normal air movement, No rhonchi, No wheeze, No rales Cardiovascular: Regular rate, Regular Rhythm, Normal S1, Normal S2, No murmurs Abdomen: Bowel Sounds Present, Soft, Non Tender, Non-Distended, No Hepato-splenomegaly Extremities: No clubbing, No cyanosis, No edema, Capillary Refill Less than 3 Seconds Skin: No rashes, No breakdown Musculoskeletal: No Tenderness to Palpation of Joints or Extremities Lymphatic: No Cervical, Supraclavicular, or Inguinal Adenopathy Neurological: Cranial nerves II-XII grossly intact, Neuro grossly intact Psych/Mental Status: Flat Affect, - - not answering questions Laboratory Results 05/18/18 21:15: WBC 6.7, RBC 4.56 L, Hgb 13.8, Hct 41.7, MCV 91.4, MCH 30.3, MCHC 33.1, RDW 13.8, RDW Differential 45.7 H, Plt Count 176, MPV 11.7, Immature Gran % (Auto) 0.300, Neut % (Auto) 63.4, Lymph % (Auto) 23.7, [place] % (Auto) 5.7, Eos % (Auto) 6.6 H, Baso % (Auto) 0.3, Absolute Neuts (auto) 4.2, Absolute Lymphs (auto) 1.58, Total Counted Not Reportable 05/18/18 21:15: PT 14.3, INR 1.1, APTT 34.2 05/18/18 21:15: Sodium 141, Potassium 4.1, Chloride 106, Carbon Dioxide 29.0, Anion Gap 6, BUN 16, Creatinine 0.80, Estim Creat Clear Calc 73.63, Est GFR (MDRD) Af Amer 121, Est GFR (MDRD) Non-Af 100, BUN/Creatinine Ratio 20.1 H, Glucose 105, Calcium 9.0, Total Bilirubin 0.30, AST 35, ALT 30, Alkaline Phosphatase 127 H, Total Protein 8.1, Albumin 4.4, Globulin 3.7, Albumin/Globulin Ratio 1.2 05/18/18 21:15: Phenytoin 41.3 H* 05/18/18 21:15: Phenobarbital 43.9 H* 05/18/18 21:25: Urine Color Yellow, Urine Clarity Clear, Urine pH 6.5, Ur Specific [place] 1.020, Urine Protein 15 H, Urine Glucose (UA) Normal, Urine Ketones 5 H, Urine Occult Blood 10 H, Urine Nitrite Negative, Urine Bilirubin Negative, Urine Urobilinogen Normal, Ur Leukocyte Esterase 25 H, Urine RBC 0-5 SEEN, Urine WBC 0-5 SEEN, Ur Squamous Epith Cells 0 SEEN, Urine Bacteria 0 SEEN, Urine Mucus 2+ 05/19/18 05:35: WBC 4.4, RBC 4.19 L, Hgb 13.1, Hct 38.6 L, MCV 92.1, MCH 31.3, MCHC 33.9, RDW 13.4, RDW Differential 44.0 H, Plt Count 159, MPV 11.7 05/19/18 05:35: Sodium 144, Potassium 3.6, Chloride 109 H, Carbon Dioxide 27.0, Anion Gap 8, BUN 14, Creatinine 0.70, Estim Creat Clear Calc 52.96, Est GFR (MDRD) Af Amer 140, Est GFR (MDRD) Non-Af 116, BUN/Creatinine Ratio 20.0, Glucose 89, Calcium 8.0 L Diagnostic Data Brain CT 05/18/18 20:56 IMPRESSION: Mild atrophy consistent with age, otherwise negative. Electronically Signed: Vladimir Arizmendi MD at 21:54 EST , Service support , Current Medications Atorvastatin Calcium (Lipitor) 20 mg PO QHS [facility] Bisacodyl (Dulcolax) 10 mg RECTAL DAILY [facility] Last Admin: 05/19/18 12:41 Dose: 10 mg Heparin Sodium (Porcine) (Heparin Na) 5,000 unit SC Q12 [facility] Last Admin: 05/19/18 10:10 Dose: 5,000 unit Hydralazine HCl (Apresoline Iv) 5 mg IV Q4H PRN PRN PRN Reason: SBP > 160 Levetiracetam 750 mg/ Sodium (Chloride) 107.5 mls @ 430 mls/hr IV Q12 [facility] Last Admin: 05/19/18 10:10 Dose: 430 mls/hr Magnesium Hydroxide (Milk Of Magnesia) 30 ml PO DAILY PRN PRN Reason: Constipation Nutritional Formula (Lactose Free) (Ensure Enlive) 120 ml PO 4X/DAY [facility] Last Admin: 05/19/18 10:10 Dose: Not Given Ondansetron HCl (Zofran) 4 mg IV Q8H PRN PRN PRN Reason: NAUSEA Sodium Chloride () 5 - 15 ml IV UD PRN PRN Reason: SALINE FLUSH Capacity - Capacity Assessment Tool Can the patient make a choice & communicate that choice?: No Medical Necessity - Tobacco Use Smoking Status: Unknown if ever smoked Assessment/Plan All Active Problems Cellulitis (Acute) Cellulitis of forearm (Acute) Dilantin toxicity (Acute) Seizures (Acute) 1. Acute metabolic encephalopathy likely medication induced due to medication dilantin and phenobarb levels were elevated at 41.2 and 43.9 respectively both dilantin and phenobarbital levels held on admission. Patient now on Keppra seizure precautions CT head showed mild atrophy consistent with age will repeat dilantin and phenobarb levels today 2. Dehydration: resolving. Was hydrated with IVF. 3. Hypertension: controlled. BP is 117/59 today. home medication of atenolol held on admission. IV hydralazine prn 4. Bradycardia: HR has been in mid 50s since admission. Likely due to dilantin effect. currently asymptomatic. will monitor 5. Dementia: Aricept was held on admission on account of obtundation. Will resume. DVT prophylaxis: Heparin Code Visit Inpatient E&M: 61734 Subs Hosp L3
--- NOTE | 2018-05-19 13:15 | PN_ITS ---
Patient Problems: Active and Suspected Problems Dilantin toxicity (Acute) Subjective: Patient seen and examined. She was admitted from his [facility] on account of altered mental status and was found to have elevated phenobarbital levels as well as elevated Dilantin levels. He is been admitted for acute metabolic encephalopathy likely medication induced from phenobarbital and Dilantin. Patient's baseline is alert and oriented x1 but verbal according to admitting notes. Patient seen and examined. He is alert but not communicating. Patient denies any questions asked. Unable to do review of systems on account of patient not answering questions. Vitals/I&O's: Vital Signs Temp Pulse Resp BP Pulse Ox 97.5 F L 54 L 15 117/59 L 98 05/19/18 09:29 05/19/18 11:02 05/19/18 09:29 05/19/18 09:29 05/19/18 09:29 Oxygen Delivery Method Room Air Weight: 163 lb 12.855 oz Body Mass Index (BMI) 27.2 Intake and Output for Last 24 Hours 05/17/18 05/18/18 05/19/18 23:59 23:59 23:59 Intake Total 1186 / 1186 Output Total 500 / 500 Balance 686 / 686 General: Alert, Confused, Disoriented HEENT: Atraumatic, PERRLA, EOMI, Normocephalic Oral: Moist Mucosa Neck: Supple, No JVD, Negative Carotid Bruits Lungs: Clear to auscultation, Normal air movement, No rhonchi, No wheeze, No rales Cardiovascular: Regular rate, Regular Rhythm, Normal S1, Normal S2, No murmurs Abdomen: Bowel Sounds Present, Soft, Non Tender, Non-Distended, No Hepato- splenomegaly Extremities: No clubbing, No cyanosis, No edema, Capillary Refill Less than 3 Seconds Skin: No rashes, No breakdown Musculoskeletal: No Tenderness to Palpation of Joints or Extremities Lymphatic: No Cervical, Supraclavicular, or Inguinal Adenopathy Neurological: Cranial nerves II-XII grossly intact, Neuro grossly intact Psych/Mental Status: Flat Affect, - - not answering questions Laboratory Results 05/18/18 21:15: WBC 6.7, RBC 4.56 L, Hgb 13.8, Hct 41.7, MCV 91.4, MCH 30.3, MCHC 33.1, RDW 13.8, RDW Differential 45.7 H, Plt Count 176, MPV 11.7, Immature Gran % (Auto) 0.300, Neut % (Auto) 63.4, Lymph % (Auto) 23.7, [place] % (Auto) 5.7, Eos % (Auto) 6.6 H, Baso % (Auto) 0.3, Absolute Neuts (auto) 4.2, Absolute Lymphs (auto) 1.58, Total Counted Not Reportable 05/18/18 21:15: PT 14.3, INR 1.1, APTT 34.2 05/18/18 21:15: Sodium 141, Potassium 4.1, Chloride 106, Carbon Dioxide 29.0, Anion Gap 6, BUN 16, Creatinine 0.80, Estim Creat Clear Calc 73.63, Est GFR (MDRD) Af Amer 121, Est GFR (MDRD) Non-Af 100, BUN/Creatinine Ratio 20.1 H, Glucose 105, Calcium 9.0, Total Bilirubin 0.30, AST 35, ALT 30, Alkaline Phosphatase 127 H, Total Protein 8.1, Albumin 4.4, Globulin 3.7, Albumin/Globulin Ratio 1.2 05/18/18 21:15: Phenytoin 41.3 H* 05/18/18 21:15: Phenobarbital 43.9 H* 05/18/18 21:25: Urine Color Yellow, Urine Clarity Clear, Urine pH 6.5, Ur Specific [place] 1.020, Urine Protein 15 H, Urine Glucose (UA) Normal, Urine Ketones 5 H, Urine Occult Blood 10 H, Urine Nitrite Negative, Urine Bilirubin Negative, Urine Urobilinogen Normal, Ur Leukocyte Esterase 25 H, Urine RBC 0-5 SEEN, Urine WBC 0-5 SEEN, Ur Squamous Epith Cells 0 SEEN, Urine Bacteria 0 SEEN, Urine Mucus 2+ 05/19/18 05:35: WBC 4.4, RBC 4.19 L, Hgb 13.1, Hct 38.6 L, MCV 92.1, MCH 31.3, MCHC 33.9, RDW 13.4, RDW Differential 44.0 H, Plt Count 159, MPV 11.7 05/19/18 05:35: Sodium 144, Potassium 3.6, Chloride 109 H, Carbon Dioxide 27.0, Anion Gap 8, BUN 14, Creatinine 0.70, Estim Creat Clear Calc 52.96, Est GFR (MDRD) Af Amer 140, Est GFR (MDRD) Non-Af 116, BUN/Creatinine Ratio 20.0, Glucose 89, Calcium 8.0 L Diagnostic Data Brain CT 05/18/18 20:56 IMPRESSION: Mild atrophy consistent with age, otherwise negative. Electronically Signed: Vladimir Arizmendi MD at 21:54 EST , Service support , Current Medications Atorvastatin Calcium (Lipitor) 20 mg PO QHS [facility] Bisacodyl (Dulcolax) 10 mg RECTAL DAILY [facility] Last Admin: 05/19/18 12:41 Dose: 10 mg Heparin Sodium (Porcine) (Heparin Na) 5,000 unit SC Q12 [facility] Last Admin: 05/19/18 10:10 Dose: 5,000 unit Hydralazine HCl (Apresoline Iv) 5 mg IV Q4H PRN PRN PRN Reason: SBP > 160 Levetiracetam 750 mg/ Sodium (Chloride) 107.5 mls @ 430 mls/hr IV Q12 [facility] Last Admin: 05/19/18 10:10 Dose: 430 mls/hr Magnesium Hydroxide (Milk Of Magnesia) 30 ml PO DAILY PRN PRN Reason: Constipation Nutritional Formula (Lactose Free) (Ensure Enlive) 120 ml PO 4X/DAY [facility] Last Admin: 05/19/18 10:10 Dose: Not Given Ondansetron HCl (Zofran) 4 mg IV Q8H PRN PRN PRN Reason: NAUSEA Sodium Chloride () 5 - 15 ml IV UD PRN PRN Reason: SALINE FLUSH Capacity - Capacity Assessment Tool Can the patient make a choice & communicate that choice?: No Medical Necessity - Tobacco Use Smoking Status: Unknown if ever smoked Assessment/Plan All Active Problems Cellulitis (Acute) Cellulitis of forearm (Acute) Dilantin toxicity (Acute) Seizures (Acute) 1. Acute metabolic encephalopathy likely medication induced due to medication * dilantin and phenobarb levels were elevated at 41.2 and 43.9 respectively * both dilantin and phenobarbital levels held on admission. Patient now on Keppra * seizure precautions * CT head showed mild atrophy consistent with age * will repeat dilantin and phenobarb levels today * 2. Dehydration: resolving. Was hydrated with IVF. 3. Hypertension: controlled. BP is 117/59 today. home medication of atenolol held on admission. IV hydralazine prn 4. Bradycardia: HR has been in mid 50s since admission. Likely due to dilantin effect. currently asymptomatic. will monitor 5. Dementia: Aricept was held on admission on account of obtundation. Will resume. DVT prophylaxis: Heparin Code Visit Inpatient E&M: 34098 Subs Hosp L3
--- NOTE | 2018-05-19 14:35 | CASEMGMT ---
PEDRO faxed updates to [facility]. Doreen FIGUEROA CLAM GROWER
[2018-05-19 15:05] LABS: Phenytoin (Dilantin) Level 34.9 mL (10.0-20.0)
[2018-05-19] MEDS: 0.9% NaCl Peripheral Flush Adult/Peds IV (21:27)
[2018-05-20] VITALS (7 sets, daily range): BP systolic 114–132; BP diastolic 61–67; PULSE 65–70; RESP 16–18; TEMP 36.6–36.7; O2SAT 90–97
[2018-05-20 06:48] LABS: Absolute Lymphocyte Count 1.04 X10^3/ul (0.83-4.51); Absolute Neutrophil Count 2.6 X10^3/uL (2.0-7.7); Basophil# 0.02 X10^3/uL; Basophil% 0.5 % (0-1); Eosinophil# 0.25 X10^3/uL; Eosinophils% 5.9 % (0-5); Hematocrit 38.5 % (40-54); Hemoglobin 12.9 g/dl (13.0-16.5); Lymphocyte # 1.04 X10^3/ul (4.0); Lymphocyte % 24.4 % (19-41); Mean Corp Hgb Conc 33.5 g/gl (32-36); Mean Corpuscular Hgb 30.3 pg (27.0-32.0); Mean Corpuscular Volume 90.4 fL (80-94); Mean Platelet Vol. 11.9 fl (6.2-12.0); Monocyte# 0.32 X10^3/uL; Monocyte% 7.5 % (0-10); Neutrophil # 2.63 X10^3/uL (2.7-7.7); Neutrophil % 61.5 % (47-70); Platelet Count 147 K/mm3 (150-450); RBC Distribution Width CV 13.3 % (11.6-14.6); RBC Distribution Width SD 43.3 fl (35.1-43.9); Red Blood Count 4.26 M/mm3 (4.6-6.2); White Blood Count 4.3 K/mm3 (4.4-11.0)
[2018-05-20 06:49] LABS: POSITIVE COUNT NO; POSITIVE DIFFERENTIAL NO; POSITIVE MORPHOLOGY NO
[2018-05-20 07:11] LABS: Anion Gap 8 (5-15); BUN 10 mg/dL (7-18); BUN/Creat Ratio 13.9 RATIO (10-20); Calcium,Total 8.4 mg/dL (8.5-10.1); Chloride 108 mmol/L (98-107); Creatinine, Serum 0.72 mg/dL (0.70-1.30); EST Glomerular Filtration Rate 112 mL/min (>60); Est Glom Filt Rate - Afr Amer 136 mL/min (>60); Estimated Creatinine Clearance 52.96 ml/min; Glucose 85 mg/dL (74-106); Potassium 3.7 mmol/L (3.5-5.1); Sodium Level 142 mmol/L (136-145)
[2018-05-20 07:29] LABS: Phenytoin (Dilantin) Level 30.9 mL (10.0-20.0)
[2018-05-20] MEDS: Heparin Injection (Vial) 5,000 UNIT/ML VIAL 5000 UNIT SC (10:33)
[2018-05-20] MEDS: 0.9% NaCl Peripheral Flush Adult/Peds IV (10:33)
--- NOTE | 2018-05-20 11:20 | CASEMGMT ---
PEDRO left a voice mail fro Sandy at [facility] letting her know patient will be returning today. Doreen FIGUEROA MSW
--- NOTE | 2018-05-20 11:42 | TREXTCAR_ITS ---
- Diet 05/19/18 15:15 NPO [Diet: Nothing Per Oral] Is pt able to select menu?: No - Routine Orders/Code Status Enema Type: Fleetz Enema Frequency: Daily PRN Suppository Type: Dulcolax 10mg Suppository Frequency: Daily PRN O2 Frequency: PRN Keep PO Greater than or Equal to (%): 92 Code Status: Full Code - Therapies Weight Bearing: Weight bearing as tolerated Physical Therapy: Eval and Treat Occupational Therapy: Eval and Treat - Allergies/Procedures Done in Hospital Allergies/Adverse Reactions: Allergies No Known Allergies Allergy (Verified 05/18/18 20:40) Procedures: None - Type of Care/Length of Stay Estimated LOS: More Than 30 Days Type of Care Needed: Skilled Rehab Potential: Fair Prognosis: Fair - Additional Orders/Day of Discharge Additional Orders: Phenytoin and Dilantin discontinued permanently. Patient started on Keppra. To follow up with neurology- Call Dr Edwards's office for an appointment. Day of Discharge: 05/20/18 - Dietary and Speech Recommendations Dietitian Recommendations/Changes: Recommend continue cardiac/low chol as medically indicated with texture/consistency as per [employer]. - Follow Up Care Primary Care Physician: Hasmukh Harrison MD [Primary Care Provider] - Please follow up with your Primary Care Physician in: one week Please Follow Up With: Millie Edwards MD When: 1 week
--- NOTE | 2018-05-20 11:42 | PCM.DC.SUM ---
Discharge Date and Diagnosis - Problem List Patient Problems: Active and Suspected Problems Dilantin toxicity (Acute) Phenobarbital toxicity (Acute) Date of Admission: 05/18/18 Date of Discharge: 05/20/18 - Primary Discharge Diagnosis Active and Suspected Problems Dilantin toxicity (Acute) - Secondary Discharge Diagnosis Chronic Problems Essential hypertension (Chronic) Hospital Course and Treatment Imaging Results: Diagnostic Data Brain CT 05/18/18 20:56 IMPRESSION: Mild atrophy consistent with age, otherwise negative. Electronically Signed: Vladimir Arizmendi MD at 21:54 EST , Service support , Operations: None Procedures: None Summary of Care Provided: The patient is a 77 year old M past medical history significant for dementia, COPD, CAD, hypertension hyperlipidemia, epilepsy and GERD. [facility] was [facility] from his [facility] with a complaint of altered mental status. His baseline was been alert and oriented x1 but he was very well. However he had become nonverbal and fallen 3 times in 1 day and so he was brought to the emergency room for evaluation. Of note, patient had been recently treated for pneumonia and his Dilantin dose had been recently increased. In the ED, he was found to be bradycardic and dehydrated with dry mucous membranes and was found to have elevated Dilantin and phenobarbital levels. These medications were held and patient was admitted and managed for acute metabolic encephalopathy due to medication toxicity namely Dilantin and phenobarbital. EKG showed a left bundle branch block which was chronic. Dilantin and phenobarb were discontinued. Patient was hydrated with IV fluids and he eventually became more responsive and alert. Dilantin and phenobarbital levels trended down. However decision was made to discontinue these medications permanently. He was started on p.o. Keppra 50 mg twice daily. Patient remained stable and was discharged [facility] to [facility]. He is to continue on p.o. Keppra 750 mg twice daily, and Dilantin and phenobarbital discontinued. His follow-up with his primary care doctor and also to make an appointment to follow-up with a neurologist for adjustment of his antiseizure medications as needed. Patient seen and examined prior to discharge. He had no complaints and felt well. He was a bit confused but was able to answer questions and denied any fever or chills, palpitations or dizziness, chest pain, abdominal pain, diarrhea vomiting. Review of systems otherwise negative. Patient is much more alert relative to yesterday. Labs and vitals reviewed. Home medication reviewed and reconciled. On examination Vital Signs Height 5 ft 5 in Weight: 163 lb 12.855 oz Weight in Pounds 163.8 lbs Pulse Ox 95 Temperature 97.8 F Pulse Rate 66 Respiratory Rate 16 Blood Pressure 132/63 Blood Pressure Position Semi-Fowlers [] General: Alert, communicative HEENT: Atraumatic, PERRLA, EOMI, Normocephalic Oral: Moist Mucosa Neck: Supple, No JVD, Negative Carotid Bruits Lungs: Clear to auscultation, Normal air movement, No rhonchi, No wheeze, No rales Cardiovascular: Regular rate, Regular Rhythm, Normal S1, Normal S2, No murmurs Abdomen: Bowel Sounds Present, Soft, Non Tender, Non-Distended, No Hepato-splenomegaly Extremities: No clubbing, No cyanosis, No edema, Capillary Refill Less than 3 Seconds Skin: No rashes, No breakdown Musculoskeletal: No Tenderness to Palpation of Joints or Extremities Lymphatic: No Cervical, Supraclavicular, or Inguinal Adenopathy Neurological: Cranial nerves II-XII grossly intact, Neuro grossly intact Psych/Mental Status: alert, responsive, mildly confused but able to answer questions Plan as described above. Patient Problems: Active and Suspected Problems Dilantin toxicity (Acute) Phenobarbital toxicity (Acute) - Physical Exam Vital Signs Temp Pulse Resp BP Pulse Ox 97.8 F 66 16 132/63 H 95 05/20/18 08:29 05/20/18 11:09 05/20/18 08:29 05/20/18 08:29 05/20/18 08:29 Oxygen Delivery Method Room Air Weight: 163 lb 12.855 oz Body Mass Index (BMI) 27.2 Intake and Output for Last 24 Hours 05/18/18 05/19/18 05/20/18 23:59 23:59 23:59 Intake Total 1404 / 1404 Output Total 900 / 900 Balance 504 / 504 Laboratory Tests Past 24 Hrs 05/19/18 05/20/18 05/20/18 14:10 06:30 06:30 WBC 4.3 L RBC 4.26 L Hgb 12.9 L Hct 38.5 L MCV 90.4 MCH 30.3 MCHC 33.5 RDW 13.3 RDW Differential 43.3 Plt Count 147 L MPV 11.9 Immature Gran % (Auto) 0.200 Neut % (Auto) 61.5 Lymph % (Auto) 24.4 [place] % (Auto) 7.5 Eos % (Auto) 5.9 H Baso % (Auto) 0.5 Absolute Neuts (auto) 2.6 Absolute Lymphs (auto) 1.04 Total Counted Not Reportable Sodium 142 Potassium 3.7 Chloride 108 H Carbon Dioxide 26.0 Anion Gap 8 BUN 10 Creatinine 0.72 Estim Creat Clear Calc 52.96 Est GFR (MDRD) Af Amer 136 Est GFR (MDRD) Non-Af 112 BUN/Creatinine Ratio 13.9 Glucose 85 Calcium 8.4 L Phenytoin 34.9 H* Phenobarbital 38.0 05/20/18 06:30 WBC RBC Hgb Hct MCV MCH MCHC RDW RDW Differential Plt Count MPV Immature Gran % (Auto) Neut % (Auto) Lymph % (Auto) [place] % (Auto) Eos % (Auto) Baso % (Auto) Absolute Neuts (auto) Absolute Lymphs (auto) Total Counted Sodium Potassium Chloride Carbon Dioxide Anion Gap BUN Creatinine Estim Creat Clear Calc Est GFR (MDRD) Af Amer Est GFR (MDRD) Non-Af BUN/Creatinine Ratio Glucose Calcium Phenytoin 30.9 H* Phenobarbital 39.2 Discharge Diet: Low fat/ Low Cholesterol Discharge Activity: Return to Normal Activity Weight Bearing Status: Weight bearing as tolerated Call your doctor if you observe: Fever of 101 or Higher, - - confusion Home Medications: Medications to take at Discharge Nitroglycerin [Nitrostat] 0.4 mg SUBLINGUAL Q5M PRN 07/06/15 Omeprazole [Prilosec] 20 mg PO DAILY 09/18/15 Atenolol [Tenormin (beta sal)] 25 mg PO DAILY 05/16/16 Isosorbide Dinitrate 30 mg PO DAILY 05/16/16 Acetaminophen [Tylenol] 650 mg PO Q4H PRN PRN 05/18/18 Aspirin [Aspirin, Baby] 81 mg PO DAILY@0800 05/18/18 Atorvastatin Calcium [Lipitor] 20 mg PO QHS 05/18/18 Bisacodyl [Biscolax] 10 mg RC X1 PRN 05/18/18 Donepezil HCl [Aricept] 20 mg PO QHS 05/18/18 Guaifenesin [Robitussin] 10 ml PO Q4H PRN PRN 05/18/18 L. Rhamnosus GG/Inulin [Culturelle Capsule] 1 each PO QHS 05/18/18 Magnesium Hydroxide [Milk Of Magnesia] 30 ml PO X1 05/18/18 Na Phos,M-B/Na Phos,Di-Ba [Fleet Enema] 120 ml RECTAL PRN PRN 05/18/18 Promethazine HCl 25 mg PO Q6H PRN 05/18/18 Dicyclomine HCl 10 mg PO TID 05/19/18 Mag Hydrox/Al Hydrox/Simeth [Mylanta II] 30 ml PO Q4H PRN PRN 05/19/18 levETIRAcetam tablet [Keppra tablet] 750 mg PO BID #60 tab 05/20/18 Following Prescrptions Were Given to Patient: levETIRAcetam tablet [Keppra tablet] 750 mg PO BID #60 tab Primary Care Physician: Hasmukh Harrison MD [Primary Care Provider] - Please follow up with your Primary Care Physician in: one week Please Follow Up With: Millie Edwards MD When: 1 week Disposition: [facility] facility Minutes spent on discharge:: 40 Patient Condition:: Stable Medical Necessity - Tobacco Use Smoking Status: Unknown if ever smoked Meaningful Use Info Meaningful Use Diagnoses (Choose all that apply): None applicable Code Visit Inpatient E&M: 16418 Disch Hosp
--- NOTE | 2018-05-20 12:58 | CASEMGMT ---
Patient is ready for d/c back to [facility]. Faxed orders to [facility]. Called [facility] and arranged for patient to get picked up at via cot. SW let Sandy at [facility] know as well as RN. SW called the number for patient's son listed on [facility] demographics and this was the wrong number. SW looked at [facility]'s demographics and found another number for Chris and another number for a female contact. 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 Plan: d/c back to [facility] under skilled level of care [facility] Doreen FIGUEROA MSW
== END 2018-05-20 14:01 | disposition skilled nursing facility (03) | DRG 93 ==
LOC: ED 22:59 → PCU 23:12
PROVIDERS: Admitting Provider Hospitalist; Emergency Provider Emergency Medicine; Family Provider Family Medicine; PCP Family Medicine; Visit Provider Student in an Organized Health Care Education/Training Program
DX: G92 Toxic encephalopathy (principal); T42.0X5A Adverse effect of hydantoin derivatives, initial encounter; T42.3X5A Adverse effect of barbiturates, initial encounter; Y92.129 Unspecified place in nursing home as the place of occurrence of the external cause; K21.9 Gastro-esophageal reflux disease without esophagitis; J44.9 Chronic obstructive pulmonary disease, unspecified; I25.10 Atherosclerotic heart disease of native coronary artery without angina pectoris; I10 Essential (primary) hypertension; E78.5 Hyperlipidemia, unspecified; G40.909 Epilepsy, unspecified, not intractable, without status epilepticus; F03.90 Unspecified dementia, unspecified severity, without behavioral disturbance, psychotic disturbance, mood disturbance, and anxiety; Z79.899 Other long term (current) drug therapy; E86.0 Dehydration; R00.1 Bradycardia, unspecified; I44.7 Left bundle-branch block, unspecified
CPT/HCPCS: 36415; 70450; 80048; 80053; 80184; 80185; 81001; 85025; 85027; 85610; 85730; 92526; 92610; 93005; 97162; 97165; 97802; 99285; J7030; A4216

== ENCOUNTER 2018-12-22 04:30 | Emergency (ER) | payer MEDICARE, SELFPAY ==
[2018-05-19 00:37] VITALS: BMI 27.2
[2018-12-22] VITALS (8 sets, daily range): BP systolic 103–142; BP diastolic 55–72; PULSE 51–68; RESP 12–18; TEMP 36.6; O2SAT 93–99; BMI 24.4
--- NOTE | 2018-12-22 04:32 | CT_ITS ---
STUDY: CT BRAIN WITHOUT CONTRAST REASON FOR EXAM: Male, 78 years old. Combative RADIATION DOSAGE (If Supplied By Facility): CTDIvol = ( 44.99 ) mGy, DLP = ( 812.98 ) mGycm TECHNIQUE: Transaxial CT imaging of the brain was performed without administration of intravenous contrast material. Individualized dose optimization techniques were used for this CT. COMPARISON: 05/18/2018 FINDINGS: Normal soft tissue structures. Normal calvarium. A 5 Normal size ventricles and extra-axial spaces for the patient's age. There are areas of decreased attenuation within the white matter tracts of the supratentorial brain, consistent with microvascular disease changes. Normal age-related changes of the basal ganglia. Normal brainstem. Normal cerebellum. There is no intracranial hemorrhage. There are no findings of an acute ischemic infarction. Normal visualized paranasal sinuses. CT/Brain/Head without Contrast IMPRESSION: No CT evidence of acute infarct or hemorrhage. If there is clinical concern for hyperacute ischemia that is not evident by CT, MRI should be considered if possible. Electronically Signed: Hasmukh Galindo MD at 0:09 EDT Tel , Service support ,
--- NOTE | 2018-12-22 04:32 | RAD_ITS ---
STUDY: X-RAY CHEST REASON FOR EXAM: Male, 78 years old. Cough TECHNIQUE: Single frontal view of the chest. COMPARISON: 05/15/2016 FINDINGS: The lungs are clear and expanded. There is no demonstrated pleural abnormality. Normal size heart. Normal mediastinum and makayla. Normal visualized pulmonary arteries. Normal visualized aortic arch and descending thoracic aorta. Normal visualized thoracic spine. Normal visualized ribs, clavicles, and shoulders. There is no demonstrated abnormality of the visualized soft tissue structures of the upper abdomen. RAD/Chest 1 View (Portable) IMPRESSION: Normal x-ray examination of the chest. Electronically Signed: Hasmukh Galindo MD at 4:53 EDT Tel , Service support ,
--- NOTE | 2018-12-22 04:33 | EKG12_ITS ---
Test Reason : ALTERED LOC Blood Pressure : / mmHG Vent. Rate : 055 BPM Atrial Rate : 055 BPM P-R Int : 200 ms QRS Dur : 140 ms QT Int : 528 ms P-R-T Axes : 052 -12 095 degrees QTc Int : 505 ms Sinus bradycardia Left bundle branch block Abnormal ECG Confirmed by YIMI ALCALA, TEGAN ([id number]), social media editor CRISTIANA MIXON ([id number]) on 12/24/2018 12:20:01 PM Referred By: GRIS Confirmed By:TEGAN GELLER MD
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
[2018-12-22 04:49] LABS: Absolute Lymphocyte Count 1.12 X10^3/uL (0.83-4.51); Absolute Neutrophil Count 3.4 X10^3/uL (2.0-7.7); Basophil# 0.03 X10^3/uL; Basophil% 0.6 % (0-1); Eosinophil# 0.29 X10^3/uL; Eosinophils% 5.5 % (0-5); Hematocrit 36.4 % (40-54); Hemoglobin 12.3 g/dL (13.0-16.5); Lymphocyte # 1.12 X10^3/ul (4.0); Lymphocyte % 21.2 % (19-41); Mean Corp Hgb Conc 33.8 g/dL (32-36); Mean Corpuscular Hgb 29.1 pg (27.0-32.0); Mean Corpuscular Volume 86.1 fL (80-94); Mean Platelet Vol. 12.2 fl (6.2-12.0); Monocyte# 0.45 X10^3/uL; Monocyte% 8.5 % (0-10); NRBC Flagged by Analyzer 0 % (0-5); Neutrophil # 3.38 X10^3/uL (2.7-7.7); Neutrophil % 63.8 % (47-70); Platelet Count 137 K/mm3 (150-450); RBC Distribution Width CV 13.2 % (11.6-14.6); Red Blood Count 4.23 M/mm3 (4.6-6.2); White Blood Count 5.3 K/mm3 (4.4-11.0)
[2018-12-22 05:03] LABS: ALB/GLOB Ratio 1.2 RATIO (0.9-2.4); AST(SGOT) 38 U/L (15-37); Alanine Aminotransfer ALT/SGPT 42 U/L (16-61); Alkaline Phosphatase 99 U/L (45-117); Anion Gap 8 (5-15); BUN 17 mg/dL (7-18); BUN/Creat Ratio 19.4 RATIO (10-20); Chloride 105 mmol/L (98-107); Creatinine, Serum 0.88 mg/dL (0.70-1.30); EST Glomerular Filtration Rate 89 mL/min (>60); Est Glom Filt Rate - Afr Amer 108 mL/min (>60); Estimated Creatinine Clearance 65.85 ml/min; Globulin 3.3 g/dL (2.2-4.2); Glucose 109 mg/dL (74-106); Potassium 3.8 mmol/L (3.5-5.1); Protein, Total 7.3 g/dL (6.4-8.2); Sodium Level 140 mmol/L (136-145)
[2018-12-22 05:17] LABS: Alcohol, Blood (Medical)-Serum < 3.0 mg/dL
--- NOTE | 2018-12-22 09:22 | ED.RN ---
PT AWAKE AND CONFUSED. PT URINATED ON FLOOR IN ROOM. PT TAKEN TO BATHROOM AND EXPLAINED HOW TO URINATE IN CUP FOR SPECIMEN COLLECTION. PT URINATED IN AND ON COMMODE BUT DID NOT USE CUP. WILL ATTEMPT TO COLLECT URINE WITH DIRECT HELP.
[2018-12-22 10:40] LABS: Bacteria 0 SEEN /hpf (None Seen); Mucous, Urine 0 SEEN /hpf (<or=2+); Squamous Epithelial Cells - UA 0 SEEN /hpf (0-5); White Blood Cells 0 SEEN /hpf (0-5)
[2018-12-22 10:42] LABS: Color, Urine Yellow (Yellow); Glucose, Dipstick Normal (Normal); Ketone-Dipstick Negative (Negative); Leukocyte Esterase-Dipstick Negative /ul (Negative); Nitrite-Dipstick Negative (Negative); Occult Blood-Urine 10 /ul (Negative); Protein-Dipstick Negative (Negative); Urine Bilirubin Dipstick Negative (Negative); Urine Clarity Sl. Cloudy (Clear); Urine Urobilinogen Normal (Normal)
[2018-12-22 10:48] LABS: Red Blood Cells-Urine 0-5 SEEN /hpf (0-5)
[2018-12-22 10:52] LABS: Amphetamine Urine VISTA NEGATIVE (<1000 ng/mL); Barbiturate Urine VISTA NEGATIVE (< 200 ng/mL); Benzodiazepine Urine VISTA NEGATIVE (< 200 ng/mL); Cocaine Urine VISTA NEGATIVE (< 300 ng/mL); Ecstacy Urine VISTA NEGATIVE (< 500 ng/mL); Methadone Urine VISTA NEGATIVE (< 300 ng/mL); PCP Urine VISTA NEGATIVE (< 25 ng/mL); THC Urine VISTA NEGATIVE (< 50 ng/mL); Vista UDS pH Range 5
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
--- NOTE | 2018-12-22 13:36 | CM.ED ---
Social Work Telephone call from patient son, Chris. Chris confirming to be a support person for patient. Chris also stating that patient step-daughter, Ramona Hoover is involved in patient care. Chris stating that patient went on a trip with Chris about a month ago to [place] where patient was doing the best I have ever seen. Chris stating that patient recently lost a son, Pradip within the past month and Chris believes this is what is agitating patient. Chris stating that he has not been right for the past week or so. Chris stating there is no formal health care power of commercial litigation attorney as we have not gotten to this. Telephone call from Ramona, . Ramona confirming all above information. [facility] that Ramona is actually the main contact for patient at [facility] but both Chris and Ramona are involved in patient care. Alessia Serrato MSW, [place]
--- NOTE | 2018-12-22 13:40 | CM.ED ---
Social Work Patient is medically cleared per Dr. Ortiz. Ramona and Chris requesting for referral to be made to [facility]. Telephone call to [facility], intake. They do not have any open beds at this moment but there is a discharge later today and they might be able to accept patient then. Clinical information faxed. Pending review. Alessia Serrato MSW, [place]
--- NOTE | 2018-12-22 14:22 | ED.RN ---
LUNCH TRAY ORDERED FOR PT. PT CONFUSED AND UNAWARE OF LOCATION, TRIED TO LEAVE TO GO HOME. PT REDIRECTED BACK TO ROOM, REORIENTED TO PLACE AND TIME. WILL CONTINUE TO MONITOR. SW CONTINUES TO WORK ON [facility].
--- NOTE | 2018-12-22 17:22 | CM.ED ---
Social Work Telephone call to [facility], no open beds as there was no discharges today. Patient is first on waiting list. Will look into other facilities. Telephone call to [facility], they are able to review clinicals. Face sheet faxed per request. [facility] to call this social work instructor within the next 30min for further information. Alessia AUGUSTIN, [place]
--- NOTE | 2018-12-22 18:19 | ED.RN ---
PT IS REFUSING TO EAT.
[2018-12-22] MEDS: Ziprasidone IM 20 MG/ML VIAL IM (19:21)
[2018-12-22] MEDS: busPIRone 5 MG Tablet 10 MG PO (20:18)
[2018-12-22] MEDS: Donepezil HCl 10 MG Tablet 20 MG PO (20:18)
[2018-12-22] MEDS: levETIRAcetam 750 MG Tablet PO (20:18)
--- NOTE | 2018-12-22 20:46 | CM.ED ---
Social Work Telephone call from [facility], patient has been accepted. [facility] is not able to accept until 10:00am tomorrow morning. Accepting Doctor: Dr. Thompson Aiken. Unit: [facility]. Nurse to Nurse: [phone]. Updated medical team. Forensic Nurse to set up transportation when able. Telephone call to [facility], sonChris, and step-daughterRamona updated on patient disposition/plan. All agreeable to plan. PLAN: Discharge to [facility] on 12/23/18 after 10:00am. Alessia AUGUSTIN, [place]
[2018-12-22] MEDS: Sertraline 50 MG Tablet 25 MG PO (20:54)
[2018-12-22] MEDS: Atenolol 25 MG Tablet PO (20:54)
[2018-12-23] VITALS (8 sets, daily range): BP systolic 116–147; BP diastolic 60–86; PULSE 55–87; RESP 14–18; O2SAT 94–98
[2018-12-23] MEDS: Ziprasidone IM 20 MG/ML VIAL IM ×2 (00:27→10:11)
--- NOTE | 2018-12-23 00:28 | NURSING ---
pt gets out of bed and getting into cupboards in room. pt restless. pt will not stay in bed. dr gurrola notified
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
[2018-12-23] MEDS: busPIRone 5 MG Tablet 10 MG PO (10:30)
[2018-12-23] MEDS: Citalopram 10 MG Tablet PO (10:30)
[2018-12-23] MEDS: levETIRAcetam 750 MG Tablet PO (10:30)
--- NOTE | 2018-12-23 10:45 | CM.ED ---
SOCIAL WORK RECEIVED CALL FROM BARBARA WITH ASSURANCE REQUESTING COPY OF PINK SLIP BE FAXED PRIOR TO D/C. PINK SLIP FAXED AT THIS TIME. RADHA HOLDER, REFINERY OPERATOR ASSISTANT, LINEN KEEPER.
--- NOTE | 2018-12-26 19:52 | CM.ED ---
SOCIAL WORK RECEIVED CALL FROM PATIENT'S STEP DAUGHTER THIS AFTERNOON INQUIRING ABOUT BEREAVEMENT SERVICES FOR PATIENT UPON D/C FROM [facility]. STEP DAUGHTER REQUESTED THIS WORKER CALL [facility] TO DISCUSS NEED. CALL TO [facility], SPOKE WITH PATIENT'S NURSE AND UPDATED ON THE ABOVE. NURSE TO LEAVE MESSAGE FOR RN CLINICAL COORDINATOR. RADHA HOLDER, CONTENT ADMINISTRATOR,INFORMATION ASSURANCE MANAGER.
== END 2018-12-23 11:49 ==
PROVIDERS: Emergency Provider Emergency Medicine; Family Provider Family Medicine; PCP Family Medicine
DX: F01.51 Vascular dementia, unspecified severity, with behavioral disturbance (principal); I10 Essential (primary) hypertension; E78.5 Hyperlipidemia, unspecified; Z79.82 Long term (current) use of aspirin; Z79.899 Other long term (current) drug therapy
CPT/HCPCS: 70450; 71045; 80053; 80307; 80320; 81001; 85025; 93005; 96372; 99285; A4216; G0480; J3486